=== PATIENT | male | born 1940 | race Caucasian/White ===

== ENCOUNTER 2017-07-04 02:11 | Outpatient (CLI) | payer MEDICARE, OTHER | END 2017-07-04 02:12 | disposition short-term general hospital (02) | LOC: EMS 02:11 | PROVIDERS: ATTEND Surgery | DX: R53.1 Weakness (principal); R42 Dizziness and giddiness; R00.1 Bradycardia, unspecified | CPT/HCPCS: A0425; A0427 ==

== ENCOUNTER 2018-05-18 16:30 | Outpatient (CLI) | payer MEDICARE, BC | END 2018-05-18 16:31 | disposition short-term general hospital (02) | LOC: EMS 16:30 | PROVIDERS: ATTEND Surgery | DX: I46.9 Cardiac arrest, cause unspecified (principal) | CPT/HCPCS: A0425; A0427 ==